=== PATIENT | female | born 1975 | race Caucasian/White ===

== ENCOUNTER 2016-12-02 13:45 | Emergency (ER) | payer OTHER ==
[2016-12-02 14:01] VITALS: BP 184/125
[2016-12-02] MEDS ORDERED: Ibuprofen TAB* 600 MG PO ONE (15:01)
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
[2016-12-02] MEDS ORDERED: Ibuprofen TAB* 200 MG PO ONE (15:08)
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
== END 2016-12-02 16:00 | disposition home or self-care (01) ==
LOC: UCEAST 13:45
DX: T14.8 Other injury of unspecified body region (principal); V49.88XA Car occupant (driver) (passenger) injured in other specified transport accidents, initial encounter; Y92.410 Unspecified street and highway as the place of occurrence of the external cause; Y99.9 Unspecified external cause status; Z86.14 Personal history of Methicillin resistant Staphylococcus aureus infection; Z72.0 Tobacco use
CPT/HCPCS: 72040; 99212; A9270-GY; G0463

== ENCOUNTER 2017-05-01 16:30 | Emergency (ER) | payer OTHER ==
--- NOTE | 2017-05-01 17:28 | UC ---
Throat Pain/Nasal John HPI - HPI Summary HPI Summary: 41 year old female presents with cough and sinus congestion. - History of Current Complaint Stated Complaint: CONGESTION Time Seen by Provider: 05/01/17 17:28 Hx Obtained From: Patient Hx Last Menstrual Period: EDC 12/29/15, MAR 31, 2015 LMP Onset/Duration: Gradual Onset, Lasting Weeks Severity: Moderate Pain Scale Used: 0-10 Numeric Associated Signs & Symptoms: Positive: Sinus Discomfort, Nasal Discharge - Allergies/Home Medications Allergies/Adverse Reactions: Allergies Allergy/AdvReac Type Severity Reaction Status Date / Time No Known Allergies Allergy Verified 03/20/16 13:08 Home Medications: Home Medications Pseudoephedrine-Guaifenesin [Mucinex D 60-600 mg] 1 tab PO 05/01/17 [History] PMH/Surg Hx/FS Hx/Imm Hx Previously Healthy: Yes - Surgical History Surgical History: Yes Surgery Procedure, Year, and Place: Tonsillectomy. cholecystectomy. 2-c sections - Family History Known Family History: Positive: Cardiac Disease, Hypertension, Diabetes Negative: Blood Disorder - Social History Alcohol Use: None Substance Use Type: None Smoking Status (MU): Heavy Every Day Tobacco Smoker Type: Cigarettes Amount Used/How Often: 1 ppd Length of Time of Smoking/Using Tobacco: 20 yrs Have You Smoked in the Last Year: Yes Household Exposure Type: Cigarettes Review of Systems Constitutional: Negative Skin: Negative Eyes: Negative ENT: Sore Throat, Nasal Discharge, Sinus Congestion, Sinus Pain/Tenderness Respiratory: Cough Cardiovascular: Negative Gastrointestinal: Negative Genitourinary: Negative Motor: Negative Neurovascular: Negative Musculoskeletal: Negative Neurological: Negative Psychological: Negative All Other Systems Reviewed And Are Negative: Yes Physical Exam Triage Information Reviewed: Yes Vital Signs Reviewed: Yes Eye Exam: Normal ENT: Positive: Nasal congestion, Nasal drainage, Sinus tenderness Dental Exam: Normal Neck exam: Normal Neck: Positive: 1 Respiratory: Positive: Respiratory distress, Wheezing Cardiovascular Exam: Normal Abdominal Exam: Normal Musculoskeletal Exam: Normal Neurological Exam: Normal Psychological Exam: Normal Skin Exam: Normal Throat Pain/Nasal Course/Dx - Differential Dx/Diagnosis Provider Diagnoses: cough. sinus congestion Discharge - Discharge Plan Condition: Stable Disposition: HOME Prescriptions: Albuterol HFA INHALER* [Ventolin HFA Inhaler*] 1 puff INH Q6H PRN #1 mdi PRN Reason: Wheezing Azithromyxin SANIYA (NF) [Z-Saniya (Zithromax) 250 mg tabs #6] 2 tab PO .TODAY, THEN 1 DAILY #6 tab Methylprednisolone [Medrol Dosepak 4 MG*] 4 mg PO .SEE SANIYA INSTRUCTION #21 tab Promethazine-Dm [Promethazine/Dextromethor 6.25-15 mg/5Ml] 1 teasp PO BEDTIME PRN #120 syp PRN Reason: Cough Patient Education Materials: Sinusitis (ED), Acute Cough (ED) Referrals: Kay Berger NP [Primary Care Provider] -
[2017-05-01 17:36] VITALS: BP 159/87
--- NOTE | 2017-05-01 18:56 | RAD ---
INDICATION: Cough COMPARISON: Chest x-ray and CT chest May 20, 2013 TECHNIQUE: PA and lateral dual-energy views were obtained. FINDINGS: Bones/Soft Tissues: There are no acute bony findings. Cardiomediastinal: The cardiomediastinal silhouette is unchanged. The pulmonary arteries appear mildly prominent, unchanged. There is a prominent right pericardial fat pad. Lungs: There are no infiltrates. Pleura: There are no pleural effusions. Other: None IMPRESSION: NO ACUTE DISEASE. NO INTERVAL CHANGE.
== END 2017-05-01 19:09 | disposition home or self-care (01) ==
LOC: UCEAST 16:30
DX: R05 Cough (principal); J34.89 Other specified disorders of nose and nasal sinuses; Z72.0 Tobacco use
CPT/HCPCS: 71020; 87502; 99212; G0463

== ENCOUNTER 2018-02-19 16:47 | Emergency (ER) | payer OTHER ==
[2018-02-19 17:40] VITALS: BP 150/92
--- NOTE | 2018-02-19 17:57 | UC ---
Abdominal Pain Female HPI - HPI Summary HPI Summary: Pt presents with progressive abdominal pain x 2 months. Pt states feels swollen on left side of abdomen. Decreased appetite. No diarrhea. no appetite + nausea with occasional vomiting. No fever, chills no back pain. No hematuria, dysuria no trauma Pt states at times pain makes her feel lightheaded. no edema. no sob, no cp, Pt states tonight her daughter was getting check and her pain was severe so she decided to come Pt's medications reviewed this visit - History of Current Complaint Chief Complaint: UCGU Stated Complaint: ABD PAIN Time Seen by Provider: 02/19/18 17:52 Hx Obtained From: Patient Hx Last Menstrual Period: 02/03/18 ?: No Onset/Duration: Gradual Onset Pain Intensity: 10 Allergies/Adverse Reactions: Allergies Allergy/AdvReac Type Severity Reaction Status Date / Time latex Allergy Hives Verified 02/19/18 19:17 PMH/Surg Hx/FS Hx/Imm Hx Previously Healthy: Yes Cardiovascular History: Hypertension - Surgical History Surgical History: Yes Surgery Procedure, Year, and Place: Tonsillectomy. cholecystectomy. 3 c- sections - Family History Known Family History: Positive: Cardiac Disease, Hypertension, Diabetes Negative: Blood Disorder - Social History Occupation: Disabled Lives: With Family Alcohol Use: None Substance Use Type: None Smoking Status (MU): Heavy Every Day Tobacco Smoker Type: Cigarettes Amount Used/How Often: 1 ppd Length of Time of Smoking/Using Tobacco: 20 yrs Have You Smoked in the Last Year: Yes Household Exposure Type: Cigarettes Review of Systems Constitutional: Negative Gastrointestinal: Abdominal Pain, Vomiting, Diarrhea Neurovascular: Other - dizziness with pain All Other Systems Reviewed And Are Negative: Yes Physical Exam - Summary Physical Exam Summary: Vital Signs Reviewed: Yes A+Ox3, no distress Eyes: Conjunctiva Clear, LIDIA. EOM intact and full ENT: Hearing grossly normal TM x 2 clear, mmoist, uvula midline, no exudate, no erythema Neck: Positive: Supple Respiratory: Positive: No respiratory distress, No accessory muscle use + CTA throughout no w/r Cardiovascular: RRR nl s1, s2 no m/r CBT <2 sec abd soft +/decrease BS, diffuse tender, no guarding soft no cva Musculoskeletal Exam: ENGEL x 4 without difficulty Strength Intact, ROM Intact Neurological: Positive: Alert, + sensation throughout Psychological: Positive: Normal Response To Family Skin: Positive: no rash, no ecchymosis Triage Information Reviewed: Yes Vital Signs: Initial Vital Signs Temp 96.8 F 02/19/18 17:33 Pulse 91 02/19/18 17:33 Resp 18 02/19/18 17:33 BP 150/92 02/19/18 17:33 Pulse Ox 96 02/19/18 17:33 Abd Pain Female Course/Dx - Course Course Of Treatment: Pt with 2 months progressive abd pain. Pt states has nausea and decreased appetitie. Pt states at time pain makes her dizzy. Pt has taken APAP with little relief. Pt with diffuse abdominal pain. Differential includes diverticulitis, colon cancer, sbo. recommend pt to ED for further eval. Pt comfortable and dylon greement with plan - Differential Dx/Diagnosis Provider Diagnoses: abdominal pain Discharge - Sign-Out/Discharge Documenting (check all that apply): Patient Departure All imaging exams completed and their final reports reviewed: No Studies - Discharge Plan Condition: Stable Disposition: HOME-RECOMMEND TO ED Patient Education Materials: Acute Abdominal Pain (ED) Referrals: Kay Berger NP [Primary Care Provider] - Additional Instructions: The doctor that evaluated you today thinks that you need additional testing that can be completed the emergency department. It is recommended that you go directly to emergency department for further evaluation. This evaluation may include blood work or imaging. This testing will be directed and decided by the provider that evaluate you at the emergency department. If pain becomes worse, you feel lightheaded, you have uncontrolled vomiting, or you have any other concerns while you are being driven to emergency department as recommended to pullover and contact 911. - Billing Disposition and Condition Condition: STABLE Disposition: Home-Recommend to ED
== END 2018-02-19 18:22 | disposition home health service (06) ==
LOC: UCEAST 16:47
DX: R10.84 Generalized abdominal pain (principal); I10 Essential (primary) hypertension
CPT/HCPCS: 81003; 99212; G0463

== ENCOUNTER 2018-02-19 19:09 | Emergency (ER) | payer OTHER ==
[2018-02-19 19:56] LABS: Hematocrit 39 % (35-47); Hemoglobin 12.2 g/dl (12.0-16.0); Mean Corpuscular HGB Conc 31 g/dl (31-36); Mean Corpuscular Hemoglobin 23 pg (27-31); Mean Corpuscular Volume 73 fL (80-97); Mean Platelet Volume 10.5 um3 (7.4-10.4); Platelet Count 274 10^3/ul (150-450); Red Blood Count 5.41 10^6/ul (4.00-5.40); Red Cell Distribution Width 18 % (10.5-15); White Blood Count 15.6 10^3/ul (3.5-10.8)
[2018-02-19 19:57] LABS: EGFR Non-African American 94.2 (>60)
[2018-02-19 19:57] LABS: Urine Appearance Cloudy; Urine Blood 1+ (Negative); Urine Color Amber; Urine Ketones Trace (Negative); Urine Protein 2+(100 mg/dL) (Negative); Urine Red Blood Cell 3+(>10/hpf) (Absent); Urine Specific Gravity 1.024 (1.010-1.030); Urine Urobilinogen Negative (Negative); Urine White Blood Cell Trace(0-5/hpf) (Absent)
[2018-02-19 20:08] LABS: ABS Basophils 0.1 10^3/ul (0-0.2); ABS Eosinophils 0.2 10^3/ul (0-0.6); ABS Lymphocytes 3.2 10^3/ul (1.0-4.8); ABS Monocytes 0.9 10^3/ul (0-0.8); ABS Neutrophils 11.3 10^3/ul (1.5-7.7); ABS Nucleated RBC 0 10^3/ul; Lymphocyte % 20.3 % (25-47); Nucleated Red Blood Cells % 0.1
--- NOTE | 2018-02-19 20:12 | ED ---
Abdominal Pain/Female - HPI Summary HPI Summary: Patient is a 42 y/o F w/ c/o left abdominal pain and epigastric pain. She states she has been experiencing this type of pain intermittently over the past two months with the current episode onsetting yesterday. Pain is noted to onset suddenly. She endorses diarrhea, nausea but denies abnormal urination, vomiting. Lying on her left side is reported to alleviate Sx, walking and standing is noted to aggravate pain. On triage, pain is rated 10/10, eating is noted to aggravate Sx, nothing is reported to alleviate Sx. Home medications and allergies are reviewed. - History of Current Complaint Chief Complaint: EDAbdPain Stated Complaint: ABD PAIN Time Seen by Provider: 02/19/18 19:23 Hx Obtained From: Patient Hx Last Menstrual Period: 02/03/18 Onset/Duration: Sudden Onset, Lasting Days - current episode onset yesterday, Still Present Severity Currently: Severe - 10/10 Pain Intensity: 10 Pain Scale Used: 0-10 Numeric - 10/10 Location: Other - left sided and epigastric pain Aggravating Factor(s): Movement, Other: - eating, standing Alleviating Factor(s): Position - lying on her left side Associated Signs and Symptoms: Positive: Nausea, Diarrhea. Negative: Urinary Symptoms, Vomiting Allergies/Adverse Reactions: Allergies Allergy/AdvReac Type Severity Reaction Status Date / Time latex Allergy Hives Verified 02/19/18 19:17 PMH/Surg Hx/FS Hx/Imm Hx Endocrine/Hematology History: Denies: Hx Diabetes, Hx Thyroid Disease Cardiovascular History: Reports: Hx Hypertension Denies: Hx Congestive Heart Failure Respiratory History: Reports: Hx Asthma - seasonal Denies: Hx Chronic Obstructive Pulmonary Disease (COPD) GI History: Reports: Hx Ulcer Neurological History: Reports: Hx Headaches - AND DIZZY - Surgical History Surgery Procedure, Year, and Place: Tonsillectomy. cholecystectomy. 3 c- sections Infectious Disease History: No Infectious Disease History: Denies: Hx Clostridium Difficile, Hx Hepatitis, Hx Human Immunodeficiency Virus (HIV), Hx of Known/Suspected MRSA, Hx Shingles, Hx Tuberculosis, Hx Known/ Suspected VRE, Hx Known/Suspected VRSA, History Other Infectious Disease, Traveled Outside the [place] in Last 30 Days - Family History Known Family History: Positive: Cardiac Disease, Hypertension, Diabetes Negative: Blood Disorder - Social History Alcohol Use: None Substance Use Type: Reports: None Smoking Status (MU): Heavy Every Day Tobacco Smoker Type: Cigarettes Amount Used/How Often: 1 ppd Length of Time of Smoking/Using Tobacco: 20 yrs Have You Smoked in the Last Year: Yes Review of Systems Positive: Abdominal Pain - left side and epigastric pain , Diarrhea, Nausea. Negative: Vomiting Positive: other - NEGATIVE: urinary Sx All Other Systems Reviewed And Are Negative: Yes Physical Exam - Summary Physical Exam Summary: Appearance: The patient is well-nourished in no acute distress and in no acute pain. Skin: The skin is warm and dry and skin color reflects adequate perfusion. HEENT: The head is normocephalic and atraumatic. The pupils are equal and reactive. The conjunctivae are clear and without drainage. Nares are patent and without drainage. Mouth reveals moist mucous membranes and the throat is without erythema and exudate. The external ears are intact. The ear canals are patent and without drainage. The tympanic membranes are intact. Neck: The neck is supple with full range of motion and non-tender. There are no carotid bruits. There is no neck vein distension. Respiratory: Chest is non-tender. Lungs are clear to auscultation and breath sounds are symmetrical and equal. Cardiovascular: Heart is regular rate and rhythm. There is no murmur or rub auscultated. There is no peripheral edema and pulses are symmetrical and equal. Abdomen: The abdomen is soft. Mild LLQ tenderness is noted. There are normal bowel sounds heard in all four quadrants and there is no organomegaly palpated. Musculoskeletal: There is no back tenderness noted. Extremities are non-tender with full range of motion. There is good capillary refill. There is no peripheral edema or calf tenderness elicited. Neurological: Patient is alert and oriented to person, place and time. The patient has symmetrical motor strength in all four extremities. Cranial nerves are grossly intact. Deep tendon reflexes are symmetrical and equal in all four extremities. Psychiatric: The patient has an appropriate affect and does not exhibit any anxiety or depression. Triage Information Reviewed: Yes Vital Signs On Initial Exam: Initial Vitals Temp Pulse Resp BP Pulse Ox 97.8 F 94 18 155/92 93 02/19/18 19:14 02/19/18 19:14 02/19/18 19:14 02/19/18 19:14 02/19/18 19:14 Vital Signs Reviewed: Yes Diagnostics - Vital Signs Vital Signs Temp Pulse Resp BP Pulse Ox 02/19/18 19:14 97.8 F 94 18 155/92 93 - Laboratory Lab Results: Lab Results 02/19/18 02/19/18 02/19/18 Range/Units 19:29 19:29 19:29 WBC 15.6 H (3.5-10.8) 10^3/ul RBC 5.41 H (4.00-5.40) 10^6/ul Hgb 12.2 (12.0-16.0) g/dl Hct 39 (35-47) % MCV 73 L (80-97) fL MCH 23 L (27-31) pg MCHC 31 (31-36) g/dl RDW 18 H (10.5-15) % Plt Count 274 (150-450) 10^3/ul MPV 10.5 H (7.4-10.4) um3 Neut % (Auto) 72.1 (38-83) % Lymph % (Auto) Pending Russell % (Auto) Pending Eos % (Auto) Pending Baso % (Auto) Pending Absolute Neuts (auto) Pending Absolute Lymphs (auto) Pending Absolute Monos (auto) Pending Absolute Eos (auto) Pending Absolute Basos (auto) Pending Absolute Nucleated RBC Pending Nucleated RBC % Pending Sodium 141 (135-145) mmol/L Potassium 4.2 (3.5-5.0) mmol/L Chloride 105 (101-111) mmol/L Carbon Dioxide 29 (22-32) mmol/L Anion Gap 7 (2-11) mmol/L BUN 9 (6-24) mg/dL Creatinine 0.69 (0.51-0.95) mg/dL Est GFR ( Amer) 114.0 (>60) Est GFR (Non-Af Amer) 94.2 (>60) BUN/Creatinine Ratio 13.0 (8-20) Glucose 148 H (70-100) mg/dL Lactic Acid 1.5 (0.5-2.0) mmol/L Calcium 9.5 (8.6-10.3) mg/dL Total Bilirubin 0.30 (0.2-1.0) mg/dL AST 30 (13-39) U/L ALT 24 (7-52) U/L Alkaline Phosphatase 61 (34-104) U/L C-Reactive Protein 13.23 H (<8.01) mg/L Total Protein 8.0 (6.4-8.9) g/dL Albumin 4.3 (3.2-5.2) g/dL Globulin 3.7 (2-4) g/dL Albumin/Globulin Ratio 1.2 (1-3) Lipase 45 (11.0-82.0) U/L Urine Color Urine Appearance Urine pH (5-9) Ur Specific [place] (1.010-1.030) Urine Protein (Negative) Urine Ketones (Negative) Urine Blood (Negative) Urine Nitrate (Negative) Urine Bilirubin (Negative) Urine Urobilinogen (Negative) Ur Leukocyte Esterase (Negative) Urine WBC (Auto) (Absent) Urine RBC (Auto) (Absent) Ur Squamous Epith Cells (Absent) Urine Bacteria (Absent) Urine Glucose (Negative) 02/19/18 Range/Units 19:31 WBC (3.5-10.8) 10^3/ul RBC (4.00-5.40) 10^6/ul Hgb (12.0-16.0) g/dl Hct (35-47) % MCV (80-97) fL MCH (27-31) pg MCHC (31-36) g/dl RDW (10.5-15) % Plt Count (150-450) 10^3/ul MPV (7.4-10.4) um3 Neut % (Auto) (38-83) % Lymph % (Auto) Russell % (Auto) Eos % (Auto) Baso % (Auto) Absolute Neuts (auto) Absolute Lymphs (auto) Absolute Monos (auto) Absolute Eos (auto) Absolute Basos (auto) Absolute Nucleated RBC Nucleated RBC % Sodium (135-145) mmol/L Potassium (3.5-5.0) mmol/L Chloride (101-111) mmol/L Carbon Dioxide (22-32) mmol/L Anion Gap (2-11) mmol/L BUN (6-24) mg/dL Creatinine (0.51-0.95) mg/dL Est GFR ( Amer) (>60) Est GFR (Non-Af Amer) (>60) BUN/Creatinine Ratio (8-20) Glucose (70-100) mg/dL Lactic Acid (0.5-2.0) mmol/L Calcium (8.6-10.3) mg/dL Total Bilirubin (0.2-1.0) mg/dL AST (13-39) U/L ALT (7-52) U/L Alkaline Phosphatase (34-104) U/L C-Reactive Protein (<8.01) mg/L Total Protein (6.4-8.9) g/dL Albumin (3.2-5.2) g/dL Globulin (2-4) g/dL Albumin/Globulin Ratio (1-3) Lipase (11.0-82.0) U/L Urine Color Tonya Urine Appearance Cloudy Urine pH 5.0 (5-9) Ur Specific [place] 1.024 (1.010-1.030) Urine Protein 2+(100 mg/dl) A (Negative) Urine Ketones Trace A (Negative) Urine Blood 1+ A (Negative) Urine Nitrate Negative (Negative) Urine Bilirubin Negative (Negative) Urine Urobilinogen Negative (Negative) Ur Leukocyte Esterase Trace A (Negative) Urine WBC (Auto) Trace(0-5/hpf) (Absent) Urine RBC (Auto) 3+(>10/hpf) A (Absent) Ur Squamous Epith Cells Present A (Absent) Urine Bacteria Absent (Absent) Urine Glucose Negative (Negative) Result Diagrams: 02/19/18 19:29 02/19/18 19:29 Lab Statement: Any lab studies that have been ordered have been reviewed, and results considered in the medical decision making process. - CT abd/pel CT CT Interpretation: Positive (See Comments) CT Interpretation Completed By: Radiologist - Bilateral intrarenal calculi including a large one in the left renal pelvis measuring 1.8 cm. There is mild hydronephrosis of the left kidney from a stone that has recently passed or intermittent obstruction by the calculus in the renal pelvis. This report was reviewed by ed physician. Re-Evaluation - Re-Evaluation First Eval Re-Evaluation Time: 21:52 Comment: Discussed results of labs and tests with patient. Follow up plan of patient to see Dr. Toth was discussed as well. Abdominal Pain Fem Course/Dx - Course Course Of Treatment: Ms. Reyes presented to the emergency department with left flank pain. She has had the pain intermittently for at least a month but it got much worse today. There are no exacerbating or relieving factors or associated symptoms. Her vital signs are stable and she was afebrile. Her she was found to have a leukocytosis of 16,000 and a mild CRP elevation. Her UA showed blood and no signs of infection. A CT abdomen and pelvis revealed a 1.8 cm left UPJ stone. It seems likely that this is intermittently causing problems as she has some mild hydronephrosis at this time. I'm going to treat her symptomatically at this time and I spoke with Dr. Toth who wants to see her first thing Wednesday morning. She is aware that if her pain gets worse or she develops any other symptoms especially fever that she should come immediately back to the emergency department. - Diagnoses Provider Diagnoses: Kidney stone on left side - Provider Notifications Discussed Care Of Patient With: Oseas Toth Time Discussed With Above Provider: 21:49 Instructed by Provider To: Other - Patient's case was discussed with Dr. Toth at 2148. Discharge - Sign-Out/Discharge Documenting (check all that apply): Patient Departure - discharge - Discharge Plan Condition: Stable Disposition: HOME Prescriptions: HYDROcodone/ACETAMIN 5-325 MG* [[place] 5-325 TAB*] 1 tab PO Q6H PRN #20 tab MDD 4 PRN Reason: Pain Patient Education Materials: Kidney Stones (ED) Referrals: Oseas Toth MD [Medical Doctor] - 2 Days Additional Instructions: RETURN TO ED FOR ANY NEW OR WORSENING SYMPTOMS. FOLLOW UP WITH DR. TOTH ON WEDNESDAY. - Billing Disposition and Condition Condition: STABLE Disposition: Home - Attestation Statements Document Initiated by Usha: Yes Documenting Scribe: Augie Masters Provider For Whom Usha is Documenting (Include Credential): Noam Wei MD Scribe Attestation: Augie Daniels , scribed for Noam Wei MD on 02/20/18 at 1918. Scribe Documentation Reviewed: Yes Provider Attestation: The documentation as recorded by the Augie cordoba accurately reflects the service I personally performed and the decisions made by me, Noam Wei MD
--- NOTE | 2018-02-19 21:25 | RAD ---
EXAM: CT Abdomen and Pelvis Without Intravenous Contrast CLINICAL HISTORY: 42 years old, female; Pain; Abdominal pain; Flank; Left; Additional info: Left flank pain TECHNIQUE: Axial computed tomography images of the abdomen and pelvis without intravenous contrast. All CT scans at this facility use at least one of these dose optimization techniques: automated exposure control; mA and/or kV adjustment per patient size (includes targeted exams where dose is matched to clinical indication); or iterative reconstruction. Coronal and sagittal reformatted images were created and reviewed. COMPARISON: PREG<14WK US PREG COMPLETE<14WKS 1ST FET 05/15/2015 1:57 PM FINDINGS: Lung bases: The lung bases are clear. ABDOMEN: Liver: Unremarkable. Gallbladder and bile ducts: There has been a prior cholecystectomy. No ductal dilation. Pancreas: Unremarkable. No ductal dilation. Spleen: Unremarkable. No splenomegaly. Adrenals: Unremarkable. No mass. Kidneys and ureters: There is a 1.8 cm calculus in the left renal pelvis and a few smaller calculi in the lower pole. There is a 8mm calculus in the lower pole of right kidney. There is left kidney and down the left ureter is mildly dilated but are definite obstructing calculus is not seen distally. Stomach and bowel: Small bowel is nondilated. No mucosal thickening. PELVIS: Appendix: No findings to suggest acute appendicitis. Bladder: The bladder is empty. No stones in the bladder or in the region of the distal ureters.. Reproductive: The uterus is normal in size. There is a 2 cm cyst in the left adnexal region. No free fluid in pelvis. ABDOMEN and PELVIS: Intraperitoneal space: Unremarkable. No free air. No significant fluid collection. Bones/joints: The bones are within normal limits. No acute fracture. No dislocation. Soft tissues: Unremarkable. Vasculature: Unremarkable. No abdominal aortic aneurysm. Lymph nodes: Unremarkable. No enlarged lymph nodes. Most are IMPRESSION: Bilateral intrarenal calculi including a large one in the left renal pelvis measuring 1.8 cm. There is mild hydronephrosis of the left kidney from a stone that has recently passed or intermittent obstruction by the calculus in the renal pelvis. To contact [facility] with a general question: [facility] - [phone] For direct physician to physician contact: Physician Hotline - [phone] [facility] ([facility] Facility ID #[id number])
[2018-02-19 23:22] VITALS: BP 147/90
== END 2018-02-19 23:22 | disposition home or self-care (01) ==
LOC: ED 19:09
DX: N13.2 Hydronephrosis with renal and ureteral calculous obstruction (principal); F17.210 Nicotine dependence, cigarettes, uncomplicated; J45.909 Unspecified asthma, uncomplicated; I10 Essential (primary) hypertension
CPT/HCPCS: 36415; 74176; 80053; 81003; 81015; 83605; 83690; 84702; 85025; 86140; 87086; 99283

== ENCOUNTER 2018-06-01 09:40 | Emergency (ER) | payer MEDICAID ==
[2018-06-01 10:12] VITALS: BP 143/76
--- NOTE | 2018-06-01 10:23 | UC ---
Respiratory Complaint HPI - HPI Summary HPI Summary: 42 y/o female presents to the urgent care c/o productive cough w; yellowish phlegm, mild SOB, and wheezing for the past week. Pt reports Hx of asthma. She is an everyday heavy smoker. Pt has been using her inhaler w/o any improvement. Symptoms started w/ a common cold and Nasal congestion and now she has L ear pain and pressure. Pt denies fever, JUAREZ, dizziness, chest pain, abdominal pain, N /V/D. Ear pain is 6/10. Pt has taken Tylenol PO to alleviate symptoms last night. - History of Current Complaint Chief Complaint: UCRespiratory Stated Complaint: URI Time Seen by Provider: 06/01/18 10:08 Hx Obtained From: Patient Hx Last Menstrual Period: 04/30/18 ?: No - Hx of Hysterectomy Onset/Duration: Gradual Onset, Lasting Weeks - 1 week, Still Present, Worse Since - yesterday Timing: Intermittent Episodes Severity Initially: Mild Severity Currently: Moderate Pain Intensity: 7 Pain Scale Used: 0-10 Numeric Character: Cough: Productive, Sputum Description: - yellowish Aggravating Factors: Recumbent Position Alleviating Factors: Bronchodilator, OTC Meds - tylenol Associated Signs And Symptoms: Positive: Dyspnea - mild, Chills, Wheezing, URI, Nasal Congestion, Sinus Discomfort. Negative: Fever, Dizziness - Risk Factors Pulmonary Embolism Risk Factors: Negative Cardiac Risk Factors: Negative Pseudomonas Risk Factors: Negative Tuberculosis Risk Factors: Negative - Allergies/Home Medications Allergies/Adverse Reactions: Allergies Allergy/AdvReac Type Severity Reaction Status Date / Time latex Allergy Hives Verified 06/01/18 10:12 PMH/Surg Hx/FS Hx/Imm Hx Previously Healthy: Yes Cardiovascular History: Hypertension Respiratory History: Asthma - Surgical History Surgical History: Yes Surgery Procedure, Year, and Place: Tonsillectomy. cholecystectomy. 3 c- sections - Family History Known Family History: Positive: Cardiac Disease, Hypertension, Diabetes Negative: Blood Disorder - Social History Occupation: Employed Full-time Lives: With Family Alcohol Use: None Substance Use Type: None Smoking Status (MU): Heavy Every Day Tobacco Smoker Type: Cigarettes Amount Used/How Often: 1 ppd Length of Time of Smoking/Using Tobacco: 20 yrs Have You Smoked in the Last Year: Yes Household Exposure Type: Cigarettes Review of Systems All Other Systems Reviewed And Are Negative: Yes Constitutional: Positive: Chills, Other - bodya aches Skin: Positive: Negative Eyes: Positive: Negative ENT: Positive: Ear Ache - B/L ear pain and pressure, Nasal Discharge - yellowish , Sinus Congestion, Sinus Pain/Tenderness Respiratory: Positive: Shortness Of Breath - mild, Cough - productive w/ yellowish phlegm, Other - wheezing Cardiovascular: Positive: Negative Gastrointestinal: Positive: Negative Genitourinary: Positive: Negative Motor: Positive: Negative Neurovascular: Positive: Negative Musculoskeletal: Positive: Negative Neurological: Positive: Negative Psychological: Positive: Negative Is Patient Immunocompromised?: No Physical Exam - Summary Physical Exam Summary: Vital Signs Reviewed: Yes General: well developed, well nourished obese female sitting in the examining table w/o any apparent distress Eyes: Positive: Conjunctiva Clear - PERRLA, EOMI, fundi grossly normal ENT: Positive: Normal ENT inspection, Hearing grossly normal, Pharynx normal, Nasal congestion - edematous and erythematous nasal mucosa, Nasal drainage - yellowish drainage, TMs normal. Negative: Tonsillar swelling, Tonsillar exudate Neck: Positive: Supple, Nontender, No Lymphadenopathy Respiratory: no orthopnea or dyspnea. Able to speak in full sentences, no retractions or accessory muscle use, no tripod position, stridor, or head bobbing. Positive breath sounds bilaterally. diffuse scattered wheezing and rhonchi on b/L lungs, no crackles or rales. Cardiovascular: Positive: RRR, No Murmur, Pulses Normal, Brisk Capillary Refill Abdomen Description: Positive: Nontender, No Organomegaly, Soft. Negative: CVA Tenderness (R), CVA Tenderness (L) Bowel Sounds: Positive: Present Musculoskeletal Exam: Normal Musculoskeletal: Positive: Strength Intact, ROM Intact, No Edema Neurological Exam: Normal Psychological Exam: Normal Skin Exam: Normal Triage Information Reviewed: Yes Vital Signs: Initial Vital Signs Temp 96.6 F 06/01/18 10:07 Pulse 102 06/01/18 10:07 Resp 18 06/01/18 10:07 BP 143/76 06/01/18 10:07 Pulse Ox 93 06/01/18 10:07 Diagnostic Evaluation - Laboratory O2 Sat by Pulse Oximetry: 93 Respiratory Course/Dx - Course Course Of Treatment: 42 y/o female presents to the urgent care c/o productive cough w; yellowish phlegm, mild SOB, and wheezing for the past week. Pt reports Hx of asthma. She is an everyday heavy smoker. Pt has been using her inhaler w/ o any improvement. Symptoms started w/ a common cold and Nasal congestion and now she has L ear pain and pressure. Pt denies fever, JUAREZ, dizziness, chest pain , abdominal pain, N/V/D. Ear pain is 6/10. Pt has taken Tylenol PO to alleviate symptoms last night. Hx obtained. Pt w/ astham exacerbation vs. COPD exacerbation since Pt is a heavy everyday smoker. Pt is hemodynamically stable, O2Sat:93%. Chest X-ray ordered to r/o pneumonia. Impression: No active Cardiopulmonary disease observed. Pt with scattered wheezing and rhonchi on both lungs. Prednisone 60 mg PO ordered and Duoneb treatment ordered. Pt tolerated well medications and her lungs improved. Pt states feeling better. O2Sat:94%. Pt will be tX for Acute Bronchitis, Rx Doxycycline PO , Prednisone taper dose and Duobed nebulizer as directed below. Pt Strongly advised to f/u with her PCP for further management. She may be developing COPD. She also has elevated BP today, advised to decrease salt in her diet and monitor BP, if it continues to be elevated to f/u with her PCP. Pt understood and agreed with D/C instructions and left the clinic hemodynamically stable and feeling better. - Differential Dx/Diagnosis Differential Diagnosis/HQI/PQRI: Asthma, Bronchitis, Exacerbation Of COPD, Influenza, Lower Resp Infection, Sinusitis Provider Diagnosis: Asthma with acute exacerbation, Bronchitis, Uncontrolled hypertension Discharge - Sign-Out/Discharge Documenting (check all that apply): Patient Departure - D/C home All imaging exams completed and their final reports reviewed: Yes - Discharge Plan Condition: Stable Disposition: HOME Prescriptions: Albuterol/Ipratropium NEB.JACOB* [Duoneb (Albuterol 2.5 MG/Ipratropium 0.5 MG)] 1 neb INH Q6H PRN #1 box PRN Reason: Wheezing DOXYcycline CAP(*) [DOXYcycline 100MG CAP(*)] 100 mg PO BID #20 cap predniSONE TAB* [Deltasone 20 MG TAB*] 20 mg PO DAILY #8 tab Patient Education Materials: Acute Bronchitis (ED), COPD (Chronic Obstructive Pulmonary Disease) (ED), Low-Sodium Diet (ED) Referrals: Kay Berger NP [Primary Care Provider] - 3 Days Additional Instructions: 1- Take Prednisone PO taper dose as directed starting tomorrow. First loading dose given today. 2-Use the Duoneb nebulizer treatment to alleviate SOB, and wheezing as directed . Increase fluid intake, rest and eat well. 3-Take Doxycycline PO as directed to alleviate symptoms. 4- If symptoms do not improve or worsen or your develop SOB with fever and severe wheezing please go immediately to the ER further evaluation and treatment. 5- F/u with your PCP in 3 days for further management on your Asthma. You may be probably be developing COPD 6-Your BP is elevated today. please decrease salt in your diet, monitor BP and if it continues to be elevated please f/u with your PCP for further management - Billing Disposition and Condition Condition: STABLE Disposition: Home
[2018-06-01] MEDS ORDERED: Albuterol/Ipratropium NEB.SOL* Albuterol 2.5 MG/Ipratropium 0.5 MG 3 ML INH ONE (10:32)
[2018-06-01] MEDS ORDERED: predniSONE TAB* 20 MG PO ONE (10:32)
== END 2018-06-01 11:37 | disposition home or self-care (01) ==
LOC: UCEAST 09:40
DX: J45.901 Unspecified asthma with (acute) exacerbation (principal); I10 Essential (primary) hypertension; Z91.040 Latex allergy status; F17.210 Nicotine dependence, cigarettes, uncomplicated
CPT/HCPCS: 71046; 99213; A9270-GY; G0463; J7512

== ENCOUNTER 2018-12-10 16:47 | Emergency (ER) | payer OTHER ==
[2018-12-10 16:53] VITALS: BP 189/115
--- NOTE | 2018-12-10 16:53 | UC ---
Throat Pain/Nasal John HPI - HPI Summary HPI Summary: 43 year old female with PMH + for HTN, asthma presents witn sinus pressure/ cold symptoms. H?O sinus infections, several years ago. + TOb use, 1 PPD, c/o sinus pressure, right ear pain, throat pain, feels like congestion from sinuses extending into lungs, + wheezing. + fever/ chills past 24 hours, tactile only. THought initially was due to allergies, took allergy medicine without relief. Symptoms have been worsening. - History of Current Complaint Chief Complaint: UCRespiratory Stated Complaint: CONGESTED Time Seen by Provider: 12/10/18 16:52 Hx Obtained From: Patient Hx Last Menstrual Period: 04/30/18 Onset/Duration: Sudden Onset, Lasting Days, Still Present, Worse Since - daily worsening Severity: Moderate Pain Scale Used: 0-10 Numeric Associated Signs & Symptoms: Positive: Wheezing, Hoarseness, Sinus Discomfort, Nasal Discharge Related History: Seasonal Allergies - Allergies/Home Medications Allergies/Adverse Reactions: Allergies Allergy/AdvReac Type Severity Reaction Status Date / Time latex Allergy Hives Verified 12/10/18 16:53 Home Medications: Home Medications Fluticasone-Salmeterol 100-50* [Advair Diskus 100-50*] 1 puff INH BID 12/10/18 [ History Confirmed 12/10/18] Tiotropium CAP.INH* [Spiriva CAP.INH*] 1 cap.inh INH DAILY 12/10/18 [History Confirmed 12/10/18] PMH/Surg Hx/FS Hx/Imm Hx Previously Healthy: No - h/o sinus infections, asthma Cardiovascular History: Hypertension - Surgical History Surgical History: Yes Surgery Procedure, Year, and Place: Tonsillectomy. cholecystectomy. 3 c- sections - Family History Known Family History: Positive: Cardiac Disease, Hypertension, Diabetes, Non- Contributory Negative: Blood Disorder - Social History Alcohol Use: None Substance Use Type: None Smoking Status (MU): Heavy Every Day Tobacco Smoker Type: Cigarettes Amount Used/How Often: 1 ppd Length of Time of Smoking/Using Tobacco: 20 yrs Have You Smoked in the Last Year: Yes Household Exposure Type: Cigarettes Review of Systems All Other Systems Reviewed And Are Negative: Yes Constitutional: Positive: Fever, Chills, Fatigue ENT: Positive: Sore Throat, Ear Ache, Sinus Congestion, Sinus Pain/Tenderness Respiratory: Positive: Shortness Of Breath, Cough Neurological: Positive: Headache Psychological: Positive: Negative Is Patient Immunocompromised?: No Physical Exam Triage Information Reviewed: Yes Appearance: No Pain Distress, Well-Nourished, Ill-Appearing - mild Vital Signs Reviewed: Yes Eyes: Positive: Conjunctiva Clear ENT: Positive: Pharynx normal, TM bulging - right sided, fluid behind TM, TM red - right sided, Uvula midline. Negative: Nasal congestion, Tonsillar swelling, Tonsillar exudate, Sinus tenderness Neck: Positive: Supple, Nontender, No Lymphadenopathy. Negative: Nuchal Rigidity, Enlarged Nodes @ Respiratory: Positive: No respiratory distress, No accessory muscle use, Wheezing - diffuse b/l. Negative: Respiratory distress Cardiovascular: Positive: RRR, No Murmur Musculoskeletal Exam: Normal Neurological Exam: Normal Psychological Exam: Normal Throat Pain/Nasal Course/Dx - Course Course Of Treatment: diffuse wheezing despite Advair, Spiriva- steroid taper given, ABX< albuterol inhalor, nebulizer, follow up with primary - Differential Dx/Diagnosis Differential Diagnosis/HQI/PQRI: Influenza, Laryngitis, Pharyngitis, Sinusitis Provider Diagnosis: Bronchitis, acute Discharge - Sign-Out/Discharge Documenting (check all that apply): Patient Departure All imaging exams completed and their final reports reviewed: No Studies - Discharge Plan Condition: Good Disposition: HOME Prescriptions: Albuterol HFA INHALER* [Ventolin HFA Inhaler*] 1 - 2 puff INH Q4H PRN #1 mdi PRN Reason: Shortness Of Breath Azithromyxin MISBAH (NF) [Z-Misbah (Zithromax) 250 mg tabs #6] 2 tab PO .TODAY, THEN 1 DAILY #6 tab Fluconazole 150 MG TAB* [Diflucan 150 MG TAB*] 150 mg PO ONCE #1 tablet Ipratropium 0.5MG/2.5ML NEB* [Atrovent 0.5 MG NEB.JACOB*] 0.5 mg INH Q4H PRN #30 meb.soln PRN Reason: Sob/Wheezing methylPREDNISolone [Medrol Dosepak 4 MG*] 1 misbah PO .SEE MISBAH INSTRUCTION #1 misbah Patient Education Materials: Acute Bronchitis (ED) Referrals: No Primary Care Phys,NOPCP [Primary Care Provider] - [facility] [Outside] (Call to get set up with primary physician ) Additional Instructions: - Increase fluid intake - Antibiotics as prescribed - Motrin/ Tylenol as needed for pain - Steroid Taper- as directed - Z-pack as directed - nebulizers as needed every 4 hours - Albuterol rescue inhaler as needed every 4 hours. - Billing Disposition and Condition Condition: GOOD Disposition: Home - Attestation Statements Provider Attestation: I was available for consult. This patient was seen by the HANSEL. The patient was not presented to, seen by, or examined by me. -Flaquita
== END 2018-12-10 17:25 | disposition home or self-care (01) ==
LOC: UCEAST 16:47
DX: J40 Bronchitis, not specified as acute or chronic (principal); I10 Essential (primary) hypertension; F17.210 Nicotine dependence, cigarettes, uncomplicated; Z91.040 Latex allergy status
CPT/HCPCS: 99212; G0463